=== PATIENT | female | born 1955 | race Caucasian/White ===

== ENCOUNTER 2017-03-24 00:59 | Inpatient (IN) | payer OTHER ==
[~2017-03-24] VITALS: Ht 160 cm; Wt 98.8 kg
[~2017-03-24 00:59] MED LIST: ANXIETY; CITALOPRAM HBR20 MG PO; HIGH BP MED; LISINOPRIL10 MG PO
[2017-03-24 01:30] LABS: HEMATOCRIT 39.7 % (36.0-46.0); MCH 27.5 PG (29.0-34.0); MCHC 32.5 G/DL (30.0-36.0); MCV 84.6 FL (83-99); PLATELET COUNT 266 K/uL (156-360); RBC DIS.WIDTH-CV 11.9 % (11.8-14.6); RBC DIS.WIDTH-SD 36.2 % (39-53); RED BLOOD COUNT 4.69 M/uL (3.80-5.20); WHITE BLOOD COUNT 7.4 K/uL (4.1-10.2)
[2017-03-24 01:40] LABS: CHLORIDE 99 mEq/L (99-109); POTASSIUM 3.3 mEq/L (3.7-5.4); SODIUM 139 mEq/L (136-147)
[2017-03-24 01:43] LABS: GLUCOSE 102 mg/dL (70-99)
[2017-03-24 01:44] LABS: ANION GAP 11 MEQ/L (2-14)
[2017-03-24 01:45] LABS: TOTAL BILIRUBIN 0.6 mg/dL (0.0-1.0)
[2017-03-24 01:46] LABS: ALKALINE PHOSPHATASE 73 IU/L (3-129)
[2017-03-24 01:47] LABS: UREA NITROGEN (BUN) 14 mg/dL (9-23)
[2017-03-24 01:51] LABS: GFR ESTIMATE (CALCULATED) > 59 mL/min/
[2017-03-24 03:59] LABS: ADD MIUA? YES; BILIRUBIN NEGATIVE; BLOOD MODERATE; COLOR YELLOW ((YELLOW)); GLUCOSE (STRIP) NEGATIVE; KETONES NEGATIVE; LEUKOCYTES TRACE; NITRITE NEGATIVE; PROTEIN (STRIP) 30; SPECIFIC GRAVITY 1.028 (1.000-1.030)
[2017-03-24 04:19] LABS: BACTERIA NONE SEEN /HPF; EPITHELIAL CELLS RARE /HPF; MUCUS 4+ /LPF; RED BLOOD CELLS TNTC /HPF (0-5); UCUL ADDED? YES; WHITE BLOOD CELLS 0-5 /HPF (0-5)
[2017-03-24 06:15] VITALS: BP 167/80
[2017-03-24 07:01] VITALS: BP 133/76
[2017-03-24 11:36] VITALS: BP 192/83
[2017-03-24] MEDS ORDERED: NAPROXEN SODIU550 M1 PO (11:50)
[2017-03-24 15:52] VITALS: BP 139/81
[2017-03-24 20:59] VITALS: BP 141/80
[2017-03-25 00:46] VITALS: BP 158/74
[2017-03-25 03:33] VITALS: BP 109/56
[2017-03-25 07:36] VITALS: BP 132/77
[2017-03-25 15:25] VITALS: BP 172/84
[2017-03-26 00:12] VITALS: BP 123/60
[2017-03-26 07:51] VITALS: BP 114/65
== END 2017-03-26 10:44 | disposition home or self-care (01) | DRG 390 ==
LOC: EME 00:59 → EDOF 04:21 → 2EAST 04:21 → ENRESERV 04:28 → 2EAST 05:54
DX: K56.60 Unspecified intestinal obstruction (principal); F32.9 Major depressive disorder, single episode, unspecified; Z85.42 Personal history of malignant neoplasm of other parts of uterus
CPT/HCPCS: 74020; 74177; 80053; 81003; 85027; 87086; 99281; 99284; J1650; J1885; J7030

== ENCOUNTER 2017-04-01 17:05 | Inpatient (IN) | payer OTHER ==
[~2017-04-01] VITALS: Ht 160 cm; Wt 94.0 kg
[~2017-04-01 17:05] MED LIST changes: +NAPROXEN SODIU550 M1 PO
[2017-04-01] MEDS ORDERED: LORAZEPAM0.5 MG PO (18:46)
[2017-04-01 18:53] LABS: HEMATOCRIT 41.5 % (36.0-46.0); MCH 27.7 PG (29.0-34.0); MEAN PLAT.VOLUME 9.4 uM^3 (9.5-12.4); PLATELET COUNT 285 K/uL (156-360); RBC DIS.WIDTH-CV 12.1 % (11.8-14.6); RBC DIS.WIDTH-SD 36.5 % (39-53); RED BLOOD COUNT 4.94 M/uL (3.80-5.20); WHITE BLOOD COUNT 11.2 K/uL (4.1-10.2)
[2017-04-01 19:02] LABS: CHLORIDE 100 mEq/L (99-109); POTASSIUM 3.6 mEq/L (3.7-5.4); SODIUM 139 mEq/L (136-147)
[2017-04-01 19:04] LABS: GLUCOSE 122 mg/dL (70-99)
[2017-04-01 19:05] LABS: ANION GAP 17 MEQ/L (2-14)
[2017-04-01 19:06] LABS: TOTAL BILIRUBIN 1.1 mg/dL (0.0-1.0)
[2017-04-01 19:08] LABS: ALKALINE PHOSPHATASE 72 IU/L (3-129); GFR ESTIMATE (CALCULATED) > 59 mL/min/
[2017-04-01 19:09] LABS: UREA NITROGEN (BUN) 14 mg/dL (9-23)
[2017-04-01 19:10] LABS: DIRECT BILIRUBIN 0.5 mg/dL (0.0-0.3)
[2017-04-01 19:11] LABS: LIPASE 11 U/L (1.0-51.0)
[2017-04-02] VITALS (7 sets, daily range): BP systolic 106–170; BP diastolic 55–86
[2017-04-02 10:33] LABS: HEMATOCRIT 36.9 % (36.0-46.0); MCH 27.6 PG (29.0-34.0); MCV 86.2 FL (83-99); MEAN PLAT.VOLUME 9.1 uM^3 (9.5-12.4); PLATELET COUNT 228 K/uL (156-360); RBC DIS.WIDTH-CV 12.2 % (11.8-14.6); RBC DIS.WIDTH-SD 38.6 % (39-53); RED BLOOD COUNT 4.28 M/uL (3.80-5.20); WHITE BLOOD COUNT 7.6 K/uL (4.1-10.2)
[2017-04-02 10:56] LABS: ANION GAP 9 MEQ/L (2-14); CHLORIDE 103 MEQ/L (99-109); GFR ESTIMATE (CALCULATED) > 59 mL/min/; GLUCOSE 101 mg/dL (70-99); POTASSIUM 3.5 MEQ/L (3.7-5.4); SAMPLE HEMOLYSIS CHECK 0; SAMPLE ICTERIC CHECK 0; SAMPLE LIPEMIA CHECK 0; SODIUM 140 MEQ/L (136-147); UREA NITROGEN (BUN) 16 mg/dL (9-23)
[2017-04-03] VITALS (7 sets, daily range): BP systolic 136–194; BP diastolic 65–105
[2017-04-03 06:35] LABS: MCH 27.4 PG (29.0-34.0); MCHC 32.2 G/DL (30.0-36.0); MCV 85.1 FL (83-99); MEAN PLAT.VOLUME 9.3 uM^3 (9.5-12.4); PLATELET COUNT 216 K/uL (156-360); RBC DIS.WIDTH-CV 12.2 % (11.8-14.6); RBC DIS.WIDTH-SD 37.2 % (39-53); RED BLOOD COUNT 4.23 M/uL (3.80-5.20); WHITE BLOOD COUNT 7.7 K/uL (4.1-10.2)
[2017-04-03 06:59] LABS: ANION GAP 11 MEQ/L (2-14); CHLORIDE 101 MEQ/L (99-109); GFR ESTIMATE (CALCULATED) > 59 mL/min/; GLUCOSE 89 mg/dL (70-99); POTASSIUM 3.4 MEQ/L (3.7-5.4); SAMPLE HEMOLYSIS CHECK 0; SAMPLE ICTERIC CHECK 0; SAMPLE LIPEMIA CHECK 0; SODIUM 138 MEQ/L (136-147); UREA NITROGEN (BUN) 11 mg/dL (9-23)
[2017-04-04 08:23] VITALS: BP 170/78
[2017-04-04 11:08] VITALS: BP 171/79
[2017-04-04 15:58] VITALS: BP 126/78
[2017-04-05 00:27] VITALS: BP 163/74
[2017-04-05 07:37] VITALS: BP 146/88
== END 2017-04-05 09:30 | disposition left against medical advice (07) | DRG 390 ==
LOC: EME 17:05 → EDOF 21:00 → ENRESERV 21:02 → 3EAST 04-02 00:35
PROVIDERS: Emergency Medicine; Surgery
DX: K56.600 Partial intestinal obstruction, unspecified as to cause (principal); I10 Essential (primary) hypertension; F32.9 Major depressive disorder, single episode, unspecified; Z85.42 Personal history of malignant neoplasm of other parts of uterus
CPT/HCPCS: 71010; 74020; 74176; 80048; 80076; 83690; 85027; 99281; 99285; G0378; J1650; J1885; J2270; J3480; J7030; J7120

== ENCOUNTER 2017-05-25 03:00 | Observation (INO) | payer OTHER ==
[~2017-05-25] VITALS: Ht 160 cm; Wt 93.3 kg
[~2017-05-25 03:00] MED LIST changes: +LORAZEPAM0.5 MG PO
[2017-05-25 03:21] LABS: MCH 27.5 PG (29.0-34.0); MCHC 32.6 G/DL (30.0-36.0); MCV 84.3 FL (83-99); MEAN PLAT.VOLUME 8.9 uM^3 (9.5-12.4); PLATELET COUNT 285 K/uL (156-360); RBC DIS.WIDTH-CV 12.4 % (11.8-14.6); RBC DIS.WIDTH-SD 37.2 % (39-53); RED BLOOD COUNT 4.51 M/uL (3.80-5.20); WHITE BLOOD COUNT 6.2 K/uL (4.1-10.2)
[2017-05-25 03:34] LABS: CHLORIDE 102 mEq/L (99-109); POTASSIUM 3.1 mEq/L (3.7-5.4); SODIUM 138 mEq/L (136-147)
[2017-05-25 03:36] LABS: GLUCOSE 110 mg/dL (70-99)
[2017-05-25 03:37] LABS: ANION GAP 11 MEQ/L (2-14)
[2017-05-25 03:38] LABS: TOTAL BILIRUBIN 0.7 mg/dL (0.0-1.0)
[2017-05-25 03:40] LABS: ALKALINE PHOSPHATASE 70 IU/L (3-129); GFR ESTIMATE (CALCULATED) > 59 mL/min/
[2017-05-25 03:41] LABS: UREA NITROGEN (BUN) 15 mg/dL (9-23)
[2017-05-25 03:43] LABS: LIPASE 13 U/L (1.0-51.0)
[2017-05-25 05:02] LABS: ADD MIUA? YES; BILIRUBIN NEGATIVE; BLOOD SMALL; COLOR YELLOW ((YELLOW)); GLUCOSE (STRIP) NEGATIVE; KETONES 20; LEUKOCYTES NEGATIVE; NITRITE NEGATIVE; PROTEIN (STRIP) 30; SPECIFIC GRAVITY 1.023 (1.000-1.030); UROBILINOGEN 0.2 MG/DL (0.2-1.0)
[2017-05-25 06:29] LABS: BACTERIA RARE /HPF; EPITHELIAL CELLS 1+ /HPF; MUCUS 3+ /LPF; UCUL ADDED? NO; WHITE BLOOD CELLS 0-5 /HPF (0-5)
[2017-05-25 09:00] VITALS: BP 168/74
[2017-05-25 12:08] VITALS: BP 144/71
[2017-05-25 19:28] VITALS: BP 157/76
[2017-05-26 00:06] VITALS: BP 177/82
[2017-05-26 03:50] VITALS: BP 155/78
[2017-05-26 07:12] LABS: ANION GAP 7 MEQ/L (2-14); CHLORIDE 103 MEQ/L (99-109); GFR ESTIMATE (CALCULATED) > 59 mL/min/; GLUCOSE 93 mg/dL (70-99); POTASSIUM 3.3 MEQ/L (3.7-5.4); SAMPLE HEMOLYSIS CHECK 0; SAMPLE ICTERIC CHECK 0; SAMPLE LIPEMIA CHECK 0; SODIUM 137 MEQ/L (136-147); UREA NITROGEN (BUN) 8 mg/dL (9-23)
[2017-05-26 07:16] LABS: HEMATOCRIT 32.7 % (36.0-46.0); MCH 27.1 PG (29.0-34.0); MCHC 32.1 G/DL (30.0-36.0); MCV 84.3 FL (83-99); RBC DIS.WIDTH-CV 12.3 % (11.8-14.6); RBC DIS.WIDTH-SD 37.2 % (39-53); RED BLOOD COUNT 3.88 M/uL (3.80-5.20); WHITE BLOOD COUNT 4.3 K/uL (4.1-10.2)
[2017-05-26 07:17] LABS: MEAN PLAT.VOLUME 9.1 uM^3 (9.5-12.4); PLAT.SUFFICIENCY ADEQUATE
[2017-05-26 07:27] LABS: PLATELET COUNT 197 K/uL (156-360)
[2017-05-26 07:36] VITALS: BP 172/77
== END 2017-05-26 09:14 | disposition left against medical advice (07) ==
LOC: EME 03:00 → EDOF 06:35 → ENRESERV 06:38 → EDOF 07:02 → ENRESERV 07:31 → 2EAST 09:03
PROVIDERS: Surgery
DX: K56.609 Unspecified intestinal obstruction, unspecified as to partial versus complete obstruction (principal); Z85.42 Personal history of malignant neoplasm of other parts of uterus; Z90.710 Acquired absence of both cervix and uterus; F32.9 Major depressive disorder, single episode, unspecified; I10 Essential (primary) hypertension
CPT/HCPCS: 74020; 74177; 80048; 80053; 81003; 83690; 85027; 99281; 99285; G0378; J2270; J3010; J3480; J7030

== ENCOUNTER 2017-12-20 11:54 | Emergency (ER) | payer OTHER ==
[~2017-12-20] VITALS: Ht 160 cm; Wt 84.8 kg
[2017-12-20 12:37] LABS: HEMATOCRIT 32.5 % (36.0-46.0); MCH 29.6 PG (29.0-34.0); MCHC 33.8 G/DL (30.0-36.0); MCV 87.4 FL (83-99); PLATELET COUNT 187 K/uL (156-360); RBC DIS.WIDTH-CV 12.8 % (11.8-14.6); RBC DIS.WIDTH-SD 40.6 % (39-53); RED BLOOD COUNT 3.72 M/uL (3.80-5.20); WHITE BLOOD COUNT 7.2 K/uL (4.1-10.2)
[2017-12-20 12:45] LABS: ALBUMIN 3.6 g/dL (3.2-4.8)
[2017-12-20 12:46] LABS: CHLORIDE 106 mEq/L (99-109); POTASSIUM 4.1 mEq/L (3.7-5.4); SODIUM 140 mEq/L (136-147)
[2017-12-20 12:48] LABS: GLUCOSE 100 mg/dL (70-99); TOTAL PROTEIN 6.7 g/dL (6.4-8.3)
[2017-12-20 12:50] LABS: TOTAL BILIRUBIN 0.5 mg/dL (0.0-1.0)
[2017-12-20 12:51] LABS: ALKALINE PHOSPHATASE 60 IU/L (3-129)
[2017-12-20 12:52] LABS: CREATININE 0.8 mg/dL (0.6-1.3); GFR ESTIMATE (CALCULATED) > 59 mL/min/
[2017-12-20 12:53] LABS: AST (GOT) 18 IU/L (2-34); UREA NITROGEN (BUN) 19 mg/dL (9-23)
[2017-12-20 12:54] LABS: ALT (GPT) 11 IU/L (3-49)
[2017-12-20 12:55] LABS: LIPASE 13 U/L (1.0-51.0)
[2017-12-20 13:42] VITALS: BP 164/90
== END 2017-12-20 13:42 | disposition home or self-care (01) ==
LOC: EME 11:54
DX: R10.13 Epigastric pain (principal); I10 Essential (primary) hypertension; F32.9 Major depressive disorder, single episode, unspecified; Z85.42 Personal history of malignant neoplasm of other parts of uterus; Z87.19 Personal history of other diseases of the digestive system
CPT/HCPCS: 74022; 80053; 81003; 83690; 85027; 99281; 99284; J1885; J2405; J7030

== ENCOUNTER 2018-02-12 06:08 | Emergency (ER) | payer OTHER ==
[~2018-02-12] VITALS: Ht 160 cm; Wt 76.4 kg
[2018-02-12 07:38] LABS: HEMATOCRIT 35.2 % (36.0-46.0); HEMOGLOBIN 11.5 G/DL (11.9-15.5); MCH 28.8 PG (29.0-34.0); MCHC 32.7 G/DL (30.0-36.0); MCV 88.2 FL (83-99); PLATELET COUNT 196 K/uL (156-360); RBC DIS.WIDTH-CV 13.2 % (11.8-14.6); RBC DIS.WIDTH-SD 42.6 % (39-53); RED BLOOD COUNT 3.99 M/uL (3.80-5.20); WHITE BLOOD COUNT 4.2 K/uL (4.1-10.2)
[2018-02-12 08:05] LABS: CHLORIDE 104 MEQ/L (99-109); POTASSIUM 3.3 MEQ/L (3.7-5.4); SODIUM 140 MEQ/L (136-147)
[2018-02-12 08:11] LABS: CREATININE 0.7 MG/DL (0.6-1.3); GFR ESTIMATE (CALCULATED) > 59 mL/min/; GLUCOSE 95 mg/dL (70-99); UREA NITROGEN (BUN) 16 mg/dL (9-23)
[2018-02-12 09:10] VITALS: BP 160/89
== END 2018-02-12 09:16 | disposition home or self-care (01) ==
LOC: EME 06:08
PROVIDERS: Nurse Practitioner Family
DX: G43.909 Migraine, unspecified, not intractable, without status migrainosus (principal); I10 Essential (primary) hypertension; Z85.42 Personal history of malignant neoplasm of other parts of uterus
CPT/HCPCS: 70450; 80048; 85027; 99281; 99284; J1885